=== PATIENT | female | born 1990 | race Two or more races ===

== ENCOUNTER 2016-07-24 19:22 | Emergency (ER) | payer OTHER ==
[~2016-07-24] VITALS: Ht 154.9 cm; Wt 59.0 kg
[~2016-07-24 19:22] MED LIST: METR500T PO; OXYC-323 PO
[2016-07-24 19:51] LABS: BILIRUBIN,URINE NEGATIVE (NEG); GLUCOSE,URINE NEGATIVE (NEG); NITRITE,URINE NEGATIVE (NEG); PROTEIN,URINE NEGATIVE (NEG-TRACE); UROBILINOGEN,URINE 0.2 mg/dL (0.2 mg/dL)
[2016-07-24 20:02] LABS: BACTERIA,URINE 0 /HPF (0-FEW); SQUAMOUS EPITHELIAL CELL,UR OCC /LPF; WBC,URINE OCC /HPF (0-4)
--- NOTE | 2016-07-24 20:46 | PHYS DOC ---
Past Medical History Past Medical History: Asthma Additional Past Medical Histor: ovarian cyst, ADHD Past Surgical History: No Surgical History Additional Past Surgical Histo: d&c Alcohol Use: None Drug Use: None Adult General Chief Complaint Chief Complaint: ABDOMINAL PAIN HPI HPI Patient is a 25 year old female with history of ovarian cyst who presents today with right pelvic pain that has been going on for 1 month. Patient states she is concerned she could've left a tampon in her vagina a month ago when she had her cycle. She started her period for July 2 days ago. Patient denies any concerns for STDs. Review of Systems Review of Systems Constitutional: Denies fever or chills [] Eyes: Denies change in visual acuity, redness, or eye pain [] HENT: Denies nasal congestion or sore throat [] Respiratory: Denies cough or shortness of breath [] Cardiovascular: No additional information not addressed in HPI [] GI: Right pelvic pain, concerned for possible tampon in the vagina : Denies dysuria or hematuria [] Musculoskeletal: Denies back pain or joint pain [] Integument: Denies rash or skin lesions [] Neurologic: Denies headache, focal weakness or sensory changes [] Endocrine: Denies polyuria or polydipsia [] Current Medications Current Medications Current Medications Medications (Trade) Dose Ordered Sig/Rimma Start Time Stop Time Status Last Admin Dose Admin Ibuprofen (Motrin) 800 mg 1X ONCE 07/24/16 21:15 07/24/16 21:16 DC 07/24/16 21:18 800 MG Allergies Allergies Allergies Coded Allergies Type Severity Reaction Last Updated Verified No Known Drug Allergies 11/17/15 No Physical Exam Physical Exam Constitutional: Well developed, well nourished, no acute distress, non-toxic appearance. [] HENT: Normocephalic, atraumatic, bilateral external ears normal, oropharynx moist, no oral exudates, nose normal. [] Eyes: PERRLA, EOMI, conjunctiva normal, no discharge. [] Neck: Normal range of motion, no tenderness, supple, no stridor. [] Cardiovascular:Heart rate regular rhythm, no murmur [] Lungs & Thorax: Bilateral breath sounds clear to auscultation [] Abdomen: Bowel sounds normal, soft, no tenderness, no masses, no pulsatile masses. [] Pelvic exam External pelvic appears normal, cervix is visualized and closed. No foreign object noted in the vaginal vault. Small amount of bright red blood consistent with her menstrual cycle was noted in the vaginal vault. Slight adnexal tenderness to the right on exam. No left adnexal tenderness. Skin: Warm, dry, no erythema, no rash. [] Back: No tenderness, no CVA tenderness. [] Extremities: No tenderness, no cyanosis, no clubbing, ROM intact, no edema. [] Neurologic: Alert and oriented X 3, normal motor function, normal sensory function, no focal deficits noted. [] Psychologic: Affect normal, judgement normal, mood normal. [] Current Patient Data Vital Signs Vital Signs Date Time Temp Pulse Resp B/P Pulse Ox O2 Delivery O2 Flow Rate FiO2 07/24/16 19:26 98.5 78 20 132/74 99 Room Air 98.5 Lab Values Laboratory Tests Test 07/24/16 19:30 Urine Collection Type Unknown Urine Color Yellow Urine Clarity Clear Urine pH 7.0 Urine Specific [place] 1.010 Urine Protein Negativemg/dL (NEG-TRACE) Urine Glucose (UA) Negativemg/dL (NEG) Urine Ketones (Stick) Negativemg/dL (NEG) Urine Blood Small (NEG) Urine Nitrite Negative (NEG) Urine Bilirubin Negative (NEG) Urine Urobilinogen Dipstick 0.2mg/dL (0.2 mg/dL) Urine Leukocyte Esterase Negative (NEG) Urine RBC 3-5/HPF (0-2) Urine WBC Occ/HPF (0-4) Urine Squamous Epithelial Cells Occ/LPF Urine Bacteria 0/HPF (0-FEW) Microbiology 07/24/16 Wet Prep - Final, Complete EKG EKG [] Radiology/Procedures Radiology/Procedures [] Course & Med Decision Making Course & Med Decision Making Pertinent Labs and Imaging studies reviewed. (See chart for details) Patient is in the ED complaining of pelvic pain and concerned she could have a tampon retained in her vagina since last month. On vaginal exam there was no foreign object. Negative urine hCG, urine analysis is negative for infection, wet prep negative for infection. Pelvic ultrasound is negative for any acute findings. Was noted for some free fluid in the pelvic region. She could possibly have had a cyst that ruptured. She was discharged with instructions to follow up with an [employer]ES ENGINEER which are provided. She is provided return precautions and discharged in stable condition. Dragon Disclaimer Dragon Disclaimer This electronic medical record was generated, in whole or in part, using a voice recognition dictation system. Departure Departure Impression: Primary Impression: Pelvic pain Disposition: 01 HOME, SELF-CARE Condition: STABLE Referrals: CHANCE KAY (PCP) VIVIANA VERDUZCO MD Follow-up with your doctor in one week Patient Instructions: Pelvic Pain, Female Additional Instructions: You were seen for pelvic pain and concern for foreign object/tampon in your vagina. We have done a physical exam. We did not find anything foreign in your vagina. Your ultrasound was negative for any foreign objects in her vagina. Ultrasound was negative for any acute findings. Follow-up with the provided OB/ [facility] MEDICAL ASSISTANT as soon as possible. Take the prescribed medicines as needed for pain. Come back to the ED symptoms worsen. Scripts Ibuprofen 800 Mg [id number] Mg PO PRN Q6HRS PRN INFLAMMATION #30 TAB Prov:MUTUNGA,ALCON PUBLIC INFORMATION DIRECTOR 07/24/16 Acetaminophen With Codeine (Tylenol With Codeine #3 Tablet)1 Each Tablet1 Tab PO PRN Q6HRS PRN PAIN #30 TAB Prov:MUTUNGA,ALCON PUBLIC INFORMATION DIRECTOR 07/24/16 MUTUNGA,ALCON PUBLIC INFORMATION DIRECTOR Jul 24, 2016 20:45
[2016-07-24] MEDS ORDERED: IBUPROFEN 800 MG TABLET. PO ONE (21:15)
--- NOTE | 2016-07-24 21:18 | RAD ---
PROCEDURE Pelvic ultrasound 07/24/2016 HISTORY Right-sided pelvic pain. TECHNIQUE Using the distended urinary bladder as a sonographic window, a real-time ultrasound examination of the pelvis was performed. Multiple images were obtained. FINDINGS The uterus is within normal limits in size and echogenicity. It measures 7.8 x 4.9 x 3.8 centimeters in longitudinal, transverse, and AP dimensions. The endometrial echo complex measures 8 millimeters in thickness which is within normal limits. No focal abnormality of the uterus is seen. Both ovaries are within normal limits in size and echogenicity. The right ovary measures 3.2 x 1.4 x 1.4 centimeters in size. The left ovary measures 3.3 x 2.6 x 1.6 centimeters in size. A minimal amount of free fluid is seen within the pelvic cul-de-sac. IMPRESSION Minimal amount of free fluid is seen within pelvis. Otherwise negative study. Electronically signed by: Ronen Ibrahim MD (Jul 24, 2016 21:17:13)
[2016-07-24] MEDS ORDERED: ACET-704 PO (21:37)
[2016-07-24] MEDS ORDERED: IBUP-1060 PO (21:37)
[2016-07-24 21:42] VITALS: BP 134/96
== END 2016-07-24 21:43 | disposition home or self-care (01) ==
LOC: ER 19:22
DX: R10.2 Pelvic and perineal pain (principal); J45.909 Unspecified asthma, uncomplicated; F90.9 Attention-deficit hyperactivity disorder, unspecified type
CPT/HCPCS: 76856; 81001; 84703; 87491; 87591; 99285; Q0111; 81025

== ENCOUNTER 2017-12-29 06:00 | Day surgery (SDC) | payer OTHER ==
[~2017-12-29] VITALS: Ht 149.9 cm; Wt 61.2 kg
[~2017-12-29 06:00] MED LIST changes: +ACET-704 PO; +BIRTH CONTROL PILL PO; +FERRIC SUBSULFATE 8 ML SOL.W.APPL TP ONE; +IBUP-1060 PO; +IBUP200T44 PO; +LISD50CA3 PO; +MELATONIN PO; +MULT1TAB52 PO; +PARO10TA57 PO; +RIZA10TA PO; +VITA1TAB3 PO
[2017-12-29 06:34] LABS: U PREG PATIENT NEGATIVE (NEG)
[2017-12-29] MEDS ORDERED: SCOPOLAMINE 1.5MG PATCH. TD SCH (07:00)
[2017-12-29] MEDS ORDERED: HYDROmorphone 2 MG/ML VIAL IV PRN (07:00)
[2017-12-29] MEDS ORDERED: MORPHINE SULFATE 2 MG/ML VIAL. IV PRN (07:00)
[2017-12-29] MEDS ORDERED: PROCHLORPERAZINE 10 MG/2 ML VIAL. IV PRN (07:00)
[2017-12-29] MEDS ORDERED: LIDOCAINE 1% PF 2 ML VIAL. ID PRN (07:00)
[2017-12-29] MEDS ORDERED: ONDANSETRON PF 4 MG/2 ML VIAL. IV PRN (07:00)
[2017-12-29] MEDS ORDERED: fentaNYL PF VIAL 100 MCG/2 ML VIAL IV PRN ×2 (07:00)
[2017-12-29] MEDS ORDERED: IV RINGERS,LACTATED 1000ML 1,000 ML IV SCH (07:00)
[2017-12-29] MEDS ORDERED: LIDOCAINE 1%/EPI 1:100,000 20 ML VIAL. INJ ONE (07:30)
[2017-12-29] MEDS ORDERED: PROPOFOL 20 ML IV ONE (07:39)
[2017-12-29] MEDS ORDERED: DEXAMETHASONE SOD PHOS 20 MG/5 ML VIAL. ONE (07:39)
[2017-12-29] MEDS ORDERED: ONDANSETRON PF 4 MG/2 ML VIAL. ONE (07:39)
[2017-12-29] MEDS ORDERED: fentaNYL PF VIAL 100 MCG/2 ML VIAL ONE (07:40)
[2017-12-29] MEDS ORDERED: MIDAZOLAM HCL/PF 2 MG/2 ML VIAL. ONE (07:40)
[2017-12-29] MEDS ORDERED: FAMOTIDINE 20 MG/2 ML VIAL ONE (08:19)
[2017-12-29] MEDS ORDERED: KETOROLAC 30 MG/ML INJ FOR OR. INJ ONE (08:23)
--- NOTE | 2017-12-29 08:39 | PDOC ---
BRIEF OPERATIVE NOTE Date: Dec 29, 2017 Pre-Op Diagnosis Cervical Dysplasia Post-Op Diagnosis SAme Procedure Performed Cervical Cone Biopsy Surgeon Dr. Hubbard Anesthesia Type: General Blood Loss less than 10 ml Specimens Obtained cervical cone bx Findings cervical dysplasia Complications none Operative Note see dictation DWAIN HUBBARD Jr, MD Dec 29, 2017 08:39
--- NOTE | 2017-12-29 08:40 | DISCH ---
DISCHARGE INSTRUCTIONS Condition on Discharge Condition on Discharge: Stable Activity After Discharge Activity Instructions for Disc: Activity as tolerated Lifting Instructions after Dis: No heavy lifting, No pulling or pushing, Do not lift >10 pounds Driving Instructions after Dis: Do not drive today Weight Bearing Status after Di: As tolerated Diet after Discharge Diet after Discharge: Regular Diet Texture: Regular Contacting the DRMelodie after DC Call your doctor for: Concerns you may have Follow-Up Follow up with: Dr. Hubbard in 2 weeks Treatment/Equipment after DC Adaptive Equipment Issued: None DWAIN HUBBARD Jr, MD Dec 29, 2017 08:40
[2017-12-29] MEDS ORDERED: OXYC-323 PO (08:51)
--- NOTE | 2017-12-29 08:54 | OP ---
DATE OF SURGERY: PREOPERATIVE DIAGNOSIS: Cervical dysplasia. POSTOPERATIVE DIAGNOSIS: Cervical dysplasia. PROCEDURE: Cervical cone biopsy. SURGEON: Dwain Hubbard MD ANESTHESIA: GETA. ESTIMATED BLOOD LOSS: Less than 10 mL. COMPLICATIONS: None. FINDINGS: Cervical dysplasia. SUMMARY: A 27-year-old with cervical dysplasia per colposcopic biopsy. The patient was counseled on need for cervical cone biopsy, risks, benefits and expectations and voiced a clear understanding to proceed. DESCRIPTION OF PROCEDURE: The patient was taken to surgery suite and placed in dorsal lithotomy position. She was prepped with Betadine solution and draped in a sterile fashion. After adequate anesthesia, weighted speculum and curved Siomara were placed vaginally. Anterior lip of the cervix was grasped with a single tooth tenaculum. The cervix was injected with 1% lidocaine with epinephrine in circumferential manner, 2-0 Vicryl sutures placed at 3 o'clock and 9 o'clock position to stabilize the cervix. Cone biopsy was performed with a 45 degree scalpel, removing a small portion of the anterior and posterior lip of the cervix. The remaining cervix was cauterized with ball tip cautery and Monsel solution was applied for good hemostasis. The weighted speculum and curved Siomara were removed. The patient tolerated the procedure well and was taken to recovery room in stable condition. Sponge and needle count correct x 3. DWAIN HUBBARD MD DR: LINDA/tabatha JOB#: [id number] / [id number]
[2017-12-29] MEDS ORDERED: oxyCODONE/APAP 5/325 1 TAB TABLET PO ONE ×2 (09:15)
[2017-12-29 09:50] VITALS: BP 110/67
--- NOTE | 2018-01-02 10:08 | PATHOLOGY ---
[facility] Accession Number: [id number] . 01 Material submitted: . CERVICAL CONE BIOPSY STITCH AT 12:00 . 01 Clinician provided ICD-10: N87.9 . 01 Clinical history: . Cervical dysplasia . 02 Diagnosis: Uterine cervix, cervical cone biopsy: - Severe dysplasia/carcinoma in situ (MALACHI-III), focal. - Exocervical, endocervical, and deep margins of cone biopsy negative for MALACHI-III. - Chronic and focal acute cervicitis with squamous metaplasia. (JPM:chevy; 12/30/2017) QMS/12/30/2017 . 02 Comment: Sections of the cervical cone biopsy show focal MALACHI-III within the 6-9:00 and 9-12:00 quadrants. The exocervical, endocervical, and deep margins are negative for MALACHI-III. There is no evidence of invasive carcinoma. (JPM:chevy; 12/30/2017) . 02 Electronically signed: . Misha Ivory MD, Pathologist NPI- [id number] . 01 Gross description: . The specimen is received in formalin, labeled "Jania Slater, cervical cone biopsy stitch at 12:00", is an unoriented, disrupted cone of cervix measuring 2.6 x 2.4 x 1.0 cm. A suture designates 12:00. The specimen is inked black, divided into 4 quadrants and each quadrant is a serially section. The specimen is entirely submitted as follows: A1. 12:00 to 3:00 A2-A3. 3:00 to 6:00 A4-A5. 6:00 to 9:00 A6-A7. 9:00 to 12:00 ([facility] [place]; 12/29/2017) SHS/SHS . 02 Pathologist provided ICD-10: D06.9, N72 . 02 CPT . 058899 Specimen Comment: A courtesy copy of this report has been sent to Specimen Comment: [phone]. Specimen Comment: Report sent to Specimen Comment: A duplicate report has been generated due to demographic updates. Performed at: 01 [facility] [address] [facility] [address], [place] [id number] MD Magen Herr MD Phone: [phone] Performed at: 02 [facility] [address], [place] [id number] MD Misha Ivory MD Phone: [phone]
== END 2017-12-29 10:28 | disposition home or self-care (01) ==
LOC: SURG 06:00
PROVIDERS: ATTEND Obstetrics & Gynecology
DX: D06.7 Carcinoma in situ of other parts of cervix (principal); N72 Inflammatory disease of cervix uteri; K21.9 Gastro-esophageal reflux disease without esophagitis; G43.909 Migraine, unspecified, not intractable, without status migrainosus; Z86.19 Personal history of other infectious and parasitic diseases; K58.9 Irritable bowel syndrome, unspecified; Z98.890 Other specified postprocedural states; Z79.899 Other long term (current) drug therapy; Z82.49 Family history of ischemic heart disease and other diseases of the circulatory system; Z83.3 Family history of diabetes mellitus; Z83.49 Family history of other endocrine, nutritional and metabolic diseases
CPT/HCPCS: 57500; 81025; 88307; J0690; J1100; J1885; J2250; J2405; J2704; J3010; J3490; J7120; S0028

== ENCOUNTER → 2018-02-15 | Outpatient (CLI) | payer OTHER ==
[~2018-02-15] MED LIST changes: -FERRIC SUBSULFATE 8 ML SOL.W.APPL TP ONE
[2018-02-15 13:12] LABS: BASO % 0 % (0-3); EOS # 0.1 x10^3/uL (0.0-0.7); EOS % 1 % (0-3); HEMATOCRIT 40.4 % (36.0-47.0); HEMOGLOBIN 13.7 g/dL (12.0-15.5); LYMPH # 1.9 x10^3/uL (1.0-4.8); LYMPH % 19 % (24-48); MEAN CORPUSCULAR HEMOGLOBIN 29 pg (25-35); MEAN CORPUSCULAR HGB CONC 34 g/dL (31-37); MEAN CORPUSCULAR VOLUME 87 fL (79-100); MONO # 0.7 x10^3/uL (0.0-1.1); MONO % 7 % (0-9); NEUT # 7.3 x10^3uL (1.8-7.7); NEUT % 73 % (31-73); PLATELET COUNT 290 x10^3/uL (140-400); RED BLOOD COUNT 4.66 x10^6/uL (3.50-5.40); RED CELL DISTRIBUTION WIDTH 13.9 % (11.5-14.5); WHITE BLOOD COUNT 9.9 x10^3/uL (4.0-11.0)
[2018-02-15 13:14] LABS: ALBUMIN 4.3 g/dL (3.4-5.0); ALBUMIN/GLOBULIN RATIO 1.1 (1.0-1.7); CALCIUM 9.5 mg/dL (8.5-10.1); CREATININE 0.6 mg/dL (0.6-1.0); GFR 121.8; POTASSIUM 3.9 mmol/L (3.5-5.1); TOTAL BILIRUBIN 0.4 mg/dL (0.2-1.0); TOTAL PROTEIN 8.3 g/dL (6.4-8.2)
== END | disposition home or self-care (01) ==
LOC: LAB 12:37
PROVIDERS: ATTEND Psychiatry & Neurology Neurology
DX: R51 Headache (principal)
CPT/HCPCS: 36415; 80053; 85025; 85651

== ENCOUNTER → 2018-03-24 | Outpatient (CLI) | payer OTHER ==
[~2018-03-24] MED LIST changes: +GADOBUTROL 7.5 MMOL/7.5 ML VIAL IV ONE; -OXYC-323 PO; +OXYC1TAB15 PO
--- NOTE | 2018-03-24 15:12 | RAD ---
MRI Brain with and without contrast History: Worsening headache Technique: Multiplanar, multi sequential pre and postcontrast MR imaging was performed of the brain. Comparison: None Findings: There is no evidence of recent infarct or cytotoxic edema. The ventricles, sulci, and cisterns are within normal limits in size and configuration. There is no significant midline shift, intraaxial mass effect, or focal abnormal extra-axial fluid collection. There is a small left parietal developmental venous anomaly. There is no nodular parenchymal or leptomeningeal enhancement. There is preservation of the major intracranial flow-voids at the skull base. The cerebellar tonsils are normal in location. There is no significant abnormality of the pituitary gland. 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 There is patchy minimal ethmoid air cell mucosal thickening. There is right diana bullosa. There is negligible frontal sinus mucosal thickening. There is patchy mild fluid and thickening of the right mastoid air cells, minimal thickening on the left.There is preserved marrow signal of the clivus. There is nonspecific prominence of adenoids. Impression: 1. 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 There is incidental small left parietal developmental venous anomaly. Electronically signed by: Job Benitez MD (03/24/2018 3:08 PM) [id number]
== END | disposition home or self-care (01) ==
LOC: MRI 13:58
PROVIDERS: ATTEND Psychiatry & Neurology Neurology
DX: R51 Headache (principal)
CPT/HCPCS: 70553; A9585